=== PATIENT | male | born 1995 | race Caucasian/White ===

== ENCOUNTER 2020-11-25 19:09 | Emergency (ER) | payer OTHER, MEDICARE, MEDICAID, SELFPAY ==
[2020-11-25 19:40] VITALS: BP 132/55; PULSE 73; RESP 16; TEMP 36.5; O2SAT 100
--- NOTE | 2020-11-25 21:57 | ED.GENADULT ---
HPI - General Adult General Chief complaint: Head Injury Stated complaint: head injury Time Seen by Provider: 11/25/20 21:28 History of Present Illness HPI narrative: Patient is a 25-year-old male who presents to the ER with headache and concern for concussion. 5 days ago some boxed furniture shifted and a truck and struck him in the head. No loss of consciousness. Has had some mild right-sided headache since then. Reports persistent nausea but no vomiting. Reports photophobia when he looks at the sun. Otherwise no photophobia or phonophobia. Headache improved with Tylenol and ibuprofen but when the medication wears off the headache returns. No fevers or chills or sweats. No confusion. No numbness or tingling or weakness to an arm or leg. No other concerns. Related Data Home Medications Medication Instructions Recorded Confirmed sertraline 100 mg PO DAILY 11/25/20 11/25/20 Allergies Allergy/AdvReac Type Severity Reaction Status Date / Time No Known Allergies Allergy Verified 11/25/20 21:19 Review of Systems Review of Systems: All systems reviewed & are unremarkable except as noted in HPI and below Constitutional: Constitutional: Denies chills and Denies fever(s) Eyes: Eyes: Denies change in vision and Reports photophobia ENT: Denies nasal congestion and Denies sore throat Gastrointestinal: Gastrointestinal: Denies abdominal pain, Denies diarrhea, Reports nausea and Denies vomiting Musculoskeletal: Musculoskeletal: Denies arthralgias, Denies joint swelling and Denies muscle cramps Neurologic: Denies dizziness, Denies syncope, Reports headache(s), Denies focal weakness and Denies numbness PMFSH Past Medical History Medical History (Updated 11/25/20 @ 22:03 by Al Jarquin MD) Depression Surgical History Surgical History (Updated 11/25/20 @ 22:00 by Al Jarquin MD) No history of previous surgery Social History Social History (Updated 11/25/20 @ 22:00 by Al Jarquin MD) Smoking status: Never smoker Exam Narrative: GENERAL: Well-appearing, well-nourished, and in no acute distress. HEAD: Normocephalic, atraumatic. EYES: PERRL and EOMI, left eye strabismus. ENT: Mucous membranes moist. Neck: Full range of motion without midline tenderness or paraspinal muscular tenderness. EXTREMITIES: Normal range of motion. No edema. NEURO: Alert and oriented x3. Cranial nerves II through XII intact. No upper extremity drift. Course Course Emergency Course: We will give Zofran here and discharged with antiemetics. Patient would like a work note for tomorrow. Vital Signs Vital signs: Vital Signs Temperature 97.7 F 11/25/20 19:40 Pulse Rate 73 11/25/20 19:40 Respiratory Rate 16 11/25/20 19:40 Blood Pressure 132/55 L 11/25/20 19:40 Pulse Oximetry 100 11/25/20 19:40 Temperature 97.7 F 11/25/20 19:40 Pulse Rate 73 11/25/20 19:40 Respiratory Rate 16 11/25/20 19:40 Blood Pressure 132/55 L 11/25/20 19:40 Pulse Oximetry 100 11/25/20 19:40 Medical Decision Making Vital Signs Vital Signs: Vital Signs Temperature 97.7 F 11/25/20 19:40 Pulse Rate 73 11/25/20 19:40 Respiratory Rate 16 11/25/20 19:40 Blood Pressure 132/55 L 11/25/20 19:40 Pulse Oximetry 100 11/25/20 19:40 Temperature 97.7 F 11/25/20 19:40 Pulse Rate 73 11/25/20 19:40 Respiratory Rate 16 11/25/20 19:40 Blood Pressure 132/55 L 11/25/20 19:40 Pulse Oximetry 100 11/25/20 19:40 Discharge Plan Discharge Clinical Impression: Concussion Patient Disposition: Home, Self-Care Condition: Stable Instructions: Concussion (ED) Additional Instructions: Return the ER if you lose consciousness, you cannot keep down food or water, you have chest pain or shortness of breath, you have additional concerns. Prescriptions: New ondansetron 4 mg tablet,disintegrating 4 mg PO Q6H PRN (Reason: nausea and vomiting) Qty: 10 RF: 0 No Action
[2020-11-25 22:30] VITALS: BP 126/60; PULSE 70; RESP 16; O2SAT 100
[2020-11-25] MEDS: ONDANSETRON HCL ODT 4 MG TABLET PO (22:33)
== END 2020-11-25 22:30 | disposition home or self-care (01) ==
PROVIDERS: Emergency Provider Emergency Medicine; PCP Family Medicine
DX: S06.0X0A Concussion without loss of consciousness, initial encounter (principal); F32.A Depression, unspecified; W20.8XXA Other cause of strike by thrown, projected or falling object, initial encounter
CPT/HCPCS: 99283; A9270

== ENCOUNTER 2021-01-19 10:59 | Emergency (ER) | payer MEDICARE, MEDICAID, SELFPAY ==
[2021-01-19 11:01] VITALS: BP 127/73; PULSE 67; RESP 18; TEMP 36.3; O2SAT 100
--- NOTE | 2021-01-19 11:58 | ED.WOUNDLAC ---
HPI - Wound/Laceration General Chief Complaint: Wound/Laceration <Irina Jackson PA-C - Last Filed: 01/19/21 12:04> Stated Complaint: fall, head laceration <ROSHAN La Last Filed: 01/19/21 12:04> Time Seen by Provider: 01/19/21 11:18 <ROSHAN La Last Filed: 01/19/21 12:04> Source: patient <ROSHAN La Last Filed: 01/19/21 12:04> Mode of arrival: ambulatory <ROSHAN La Last Filed: 01/19/21 12:04> Limitations: no limitations <ROSHAN La Last Filed: 01/19/21 12:04> History of Present Illness HPI narrative: This is a 25-year-old male that presents to the emergency department after head injury yesterday. Reports he slipped and fell down a couple of stairs. Reports hitting the back of his head. Denies loss of consciousness. Reports a laceration to the area. He is up-to-date on tetanus. Denies vision changes, vomiting, numbness, or weakness. <ROSHAN La Last Filed: 01/19/21 12:04> Related Data Home Medications: Home Medications Medication Instructions Recorded Confirmed sertraline 100 mg PO DAILY 11/25/20 11/25/20 <ROSHAN La Last Filed: 01/19/21 12:04> Allergies/Adverse Reactions: Allergies Allergy/AdvReac Type Severity Reaction Status Date / Time No Known Allergies Allergy Verified 01/19/21 11:51 <ROSHAN La Last Filed: 01/19/21 12:04> Review of Systems Review of Systems: CONSTITUTIONAL: Denies fever EYES: Denies visual changes GASTROINTESTINAL: Denies vomiting MUSCULOSKELETAL: Denies back pain, joint pain, or myalgia. NEUROLOGIC: Denies headache, numbness, or weakness. <ROSHAN La Last Filed: 01/19/21 12:04> All systems reviewed & are unremarkable except as noted in HPI and below <Irina Jackson PA-C - Last Filed: 01/19/21 12:04> [facility] Past Medical History Medical History: Medical History (Updated 01/19/21 @ 12:04 by Irina Jackson PA-C) Depression <Irina Jackson PA-C - Last Filed: 01/19/21 12:04> Surgical History Surgical History: Surgical History (Updated 11/25/20 @ 22:00 by Al Jarquin MD) No history of previous surgery <Irina Jackson PA-C - Last Filed: 01/19/21 12:04> Social History Social History: Social History (Updated 11/25/20 @ 22:00 by Al Jarquin MD) Smoking status: Never smoker <Irina Jackson PA-C - Last Filed: 01/19/21 12:04> Exam Narrative: GENERAL: Well-appearing, well-nourished, and in no acute distress. HEAD: Normocephalic. 3 cm linear laceration that is superficial, appears to be starting to heal. No surrounding erythema or abnormal drainage EYES: PERRLA and EOMI. ENT: Nares clear, no rhinorrhea or epistaxis. Mucous membranes moist. Oropharynx without tonsillar hypertrophy exudate or other lesions. Bilateral TMs pearly garcia non-bulging NECK: Supple. No adenopathy or masses. No midline cervical spine tenderness CHEST: Clear to auscultation. No respiratory distress. No wheezes rales or rhonchi HEART: Regular rate and rhythm. No murmur heard. Normal peripheral pulses. BACK: No midline thoracic or lumbar spine tenderness EXTREMITIES: Normal range of motion. No edema or obvious deformity. SKIN: Warm, dry, no rash. NEURO: No focal deficits. Alert and oriented x3. Cranial nerves II through XII grossly intact PSYCH: Normal mood and affect <Irina Jackson PA-C - Last Filed: 01/19/21 12:04> Course PSYCH NURSE/PA Physician Supervision I did not see this patient nor was the care plan discussed with me. I was available for evaluation and consultation, I agree with the documentation as above <Kane Garcia MD - Last Filed: 01/19/21 13:32> Vital Signs Vital signs: Vital Signs Temperature 36.3 C L 01/19/21 11:01 Pulse Rate 67 01/19/21 11:01 Respiratory Rate 18 01/19/21 11:01 Blood Pressure 127/73 01/19/21 11:01 Pulse Oximetry 100
== END 2021-01-19 12:09 | disposition home or self-care (01) ==
PROVIDERS: Emergency Provider Emergency Medicine; PCP Family Medicine
DX: S01.01XA Laceration without foreign body of scalp, initial encounter (principal); F32.A Depression, unspecified; W10.9XXA Fall (on) (from) unspecified stairs and steps, initial encounter
CPT/HCPCS: 99283